=== PATIENT | male | born 1950 | race Caucasian/White ===

== ENCOUNTER 2016-08-08 21:17 | Emergency (ER) | payer OTHER, MEDICARE ==
[2016-08-08 21:52] VITALS: BP 165/81
--- NOTE | 2016-08-08 22:23 | EDM.PDOC ---
ED HPI GENERAL MEDICAL PROBLEM - General Chief Complaint: Genitourinary Problem Stated Complaint: catheter fell out Time Seen by Provider: 08/08/16 21:23 Source of Information: Reports: Patient, RN, RN Notes Reviewed History Limitations: Reports: No Limitations - History of Present Illness INITIAL COMMENTS - FREE TEXT/NARRATIVE: Patient presents to the ED at [facility] stating his gil catheter "fell out." Patient states he underwent a TURP yesterday at the [facility]" and they recommended he be seen in an ER for further assessment and treatment. In further interview with patient, it was found the patient cut the valve on the catheter himself because he thought the gil was not draining any urine. The caused the balloon to deflate, hence, catheter falling out. Onset: Today - Related Data Allergies Allergy/AdvReac Type Severity Reaction Status Date / Time No Known Allergies Allergy Verified 08/08/16 21:52 Home Meds: Home Meds . [Unable to Verify Home Med List] 08/08/16 [History] Past Medical History Genitourinary History: Reports: Other (See Below) Other Genitourinary History: TURP 08/07/16 Social & Family History - Tobacco Use Smoking Status *Q: Former Smoker Used Tobacco, but Quit: Yes Month Tobacco Last Used: 1968 ED ROS GENERAL - Review of Systems Review Of Systems: See Below Constitutional: Denies: Fever, Chills, Weakness Respiratory: Denies: Shortness of Breath, Cough Cardiovascular: Denies: Chest Pain, Palpitations GI/Abdominal: Denies: Abdominal Pain, Nausea, Vomiting : Reports: Hematuria (s/p TURP), Incontinence, Urinary Retention. Denies: Dysuria, Pain Skin: Reports: No Symptoms Neurological: Reports: No Symptoms ED EXAM, RENAL/ - Physical Exam Exam: See Below Exam Limited By: No Limitations General Appearance: Alert, No Apparent Distress Respiratory/Chest: No Respiratory Distress, Lungs Clear, Normal Breath Sounds Cardiovascular: Regular Rate, Rhythm GI/Abdominal: Normal Bowel Sounds, Soft, Non-Tender (Male) Exam: Normal Inspection Neurological: Alert, Oriented Skin Exam: Warm, Dry, Intact, Normal Color, No Rash ED PROCEDURES - Additional/Other Procedure(s) Procedure(s) (Free Text): Gil Catheter insertion performed by nursing staff. 22Fr 30cc gil catheter inserted without any complication. See nursing notes Course - Vital Signs Last Recorded V/S: Last Vital Signs Temp 37.2 C 08/08/16 21:49 Pulse 77 08/08/16 21:49 Resp 16 08/08/16 21:49 BP 165/81 H 08/08/16 21:49 Pulse Ox 100 08/08/16 21:49 Departure - Departure Time of Disposition: 22:28 Disposition: Home, Self-Care 01 Condition: Good Clinical Impression: Gil catheter in place Gil catheter problem Qualifiers: Encounter type: initial encounter Qualified Code(s): T83.9XXA - Unspecified complication of genitourinary prosthetic device, implant and graft, initial encounter - Discharge Information Instructions: Gil Catheter Care, Adult Forms: ED Department Discharge - Problem List Review Problem List Initiated/Reviewed/Updated: Yes
== END 2016-08-08 22:39 | disposition home or self-care (01) ==
LOC: VM.ED 21:17
DX: T83.9XXA Unspecified complication of genitourinary prosthetic device, implant and graft, initial encounter (principal); Z87.891 Personal history of nicotine dependence
CPT/HCPCS: 51702; 99282-GF; 99283

== ENCOUNTER 2024-10-25 21:31 | Emergency (ER) | payer MEDICARE, OTHER ==
[2024-10-25] MEDS ORDERED: Sodium Chloride 0.9% 10 ML Syringe FLUSH PRN (22:08)
[2024-10-25 22:14] LABS: PLATELET COUNT,PLT 270 x10^3/uL (130-400); RED BLOOD CELL COUNT 4.61 x10^6/uL (4.5-6.0); WHITE BLOOD CELL COUNT,WBC 18.4 x10^3/uL (4.0-10.0)
[2024-10-25 22:16] LABS: APPEARANCE,URINE SLIGHTLY CLOUDY (CLEAR); GLUCOSE,URINE 100 mg/dL (NEGATIVE); OCCULT BLOOD,URINE MODERATE (NEGATIVE)
[2024-10-25 22:24] LABS: SQUAMOUS EPITHELIAL CELLS,UR FEW /HPF (NOT SEEN)
[2024-10-25 22:33] LABS: BAND PERCENT MAN 3 % (0-6); EOSINOPHILS ABSOLUTE MAN 0.2 x10^3/uL (0.0-0.5); EOSINOPHILS PERCENT MAN 1 % (0-4); LYMPHOCYTES ABSOLUTE MAN 1.1 x10^3/uL (1.0-4.8); LYMPHOCYTES PERCENT MAN 6 % (25-50); MONOCYTES ABSOLUTE MAN 2.0 x10^3/uL (0.0-0.8); MONOCYTES PERCENT MAN 11 % (2-11); NEUTROPHILS ABSOLUTE MAN 15.1 x10^3/uL (1.8-7.7); PLATELET COUNT ESTIMATE ADEQUATE; SEG NEUTROPHILS PERCENT MAN 79 % (50-80)
[2024-10-25 22:36] LABS: A/G RATIO 0.76; ALANINE AMINOTRANSFERASE,ALT 47.0 U/L (16-63); ASPARTATE AMNIOTRANSFERASE,AST 30.0 U/L (15-37); BILIRUBIN TOTAL 1.6 mg/dL (0.2-1.0); BLOOD UREA NITROGEN,BUN 14.0 mg/dL (7-18); CARBON DIOXIDE,CO2 23.0 mmol/L (21-32); CHLORIDE,CL 101.0 mmol/L (98-107); CREATININE 1.1 mg/dL (0.70-1.30); EST CRCL DRUG DOSING (CG) 62.75 mL/min; ESTIMATED GFR 70.0 mL/min (>=60); GLUCOSE RANDOM 140.0 mg/dL (70-99); POTASSIUM,K 3.7 mmol/L (3.5-5.1); PROTEIN TOTAL,TP 7.4 g/dL (6.4-8.2); SODIUM,NA 136.0 mmol/L (136-145)
[2024-10-25] MEDS: Iopamidol 612 MG/ML 100 ML Bottle IVPUSH ONE (23:36)
== END 2024-10-26 00:41 | disposition home or self-care (01) ==
LOC: VM.ED 21:31
DX: M25.512 Pain in left shoulder (principal); R41.0 Disorientation, unspecified; I10 Essential (primary) hypertension
CPT/HCPCS: 70450; 71045; 73201; 80053; 81001; 83605; 84484; 85025; 93005; 99284; Q9967; 93010